=== PATIENT | female | born 1935 | race African-American/Black ===

== ENCOUNTER 2018-07-15 16:18 | Emergency (ER) | payer OTHER ==
[~2018-07-15] VITALS: Ht 165.1 cm; Wt 102.0 kg
[~2018-07-15 16:18] MED LIST: BENA40TA9 PO; CLON0.2T PO; FURO40TA5 PO; IBUP-2030 PO; INSU3INS6 SUBCUT; METF500T6 PO; METO100T16 PO; NIFE60TA94 PO; SIMV40TA5 PO; TRAM50TA PO
[2018-07-15] MEDS ORDERED: IBUPROFEN 600MG TABLET PO STA (17:03)
[2018-07-15 18:04] LABS: BASOPHILS % 0.4 % (0.0-2.0); EOSINOPHILS % 9.1 % (0.0-5.0); HEMATOCRIT. 33.5 % (36.0-48.0); HEMOGLOBIN. 10.5 g/dL (12.0-16.0); LYMPHOCYTES % 17.5 % (20.0-50.0); MEAN CORPUSCULAR HEMOGLOBIN 25.8 pg (28.0-32.0); MEAN CORPUSCULAR VOLUME 81.8 fL (81.0-99.0); MEAN PLATELET VOLUME 7.5 fl (7.4-10.4); MONOCYTES % 10.9 % (2.0-8.0); NEUTROPHILS % 62.1 % (40.0-76.0); PLATELET 410 x1000/uL (130-400); RED BLOOD CELL COUNT 4.09 mill/uL (4.2-5.4); RED CELL DISTRIBUTION WIDTH 20.3 % (11.6-14.6)
[2018-07-15 18:05] LABS: CLARITY URINE TURBID (CLEAR); COLOR URINE DARK YELLOW (YELLOW); KETONES URINE TRACE (NEGATIVE); LEUKOCYTE ESTERASE URINE 3+ (NEGATIVE); NITRITE URINE POSITIVE (NEGATIVE); OCCULT BLOOD URINE 1+ (NEGATIVE); PH URINE 5.5 (4.5-8.0); PROTEIN URINE 2+ (NEGATIVE); SPECIFIC GRAVITY URINE 1.031 (1.005-1.030)
[2018-07-15 18:08] LABS: CHLORIDE 103 mEq/L (98-107)
[2018-07-15 20:19] VITALS: BP 166/76
== END 2018-07-15 20:36 | disposition home or self-care (01) ==
LOC: ER 16:18
DX: R10.9 Unspecified abdominal pain (principal); N30.00 Acute cystitis without hematuria; E11.9 Type 2 diabetes mellitus without complications; E78.00 Pure hypercholesterolemia, unspecified; I11.0 Hypertensive heart disease with heart failure; I50.9 Heart failure, unspecified; Z88.0 Allergy status to penicillin; Z88.2 Allergy status to sulfonamides; Z88.6 Allergy status to analgesic agent; Z79.4 Long term (current) use of insulin; Z91.011 Allergy to milk products; Z95.0 Presence of cardiac pacemaker; Z79.899 Other long term (current) drug therapy
CPT/HCPCS: 36415; 74176; 80053; 81003; 85025; 87077; 87086; 87186; 99285

== ENCOUNTER 2020-12-05 10:48 | Inpatient (IN) | payer MEDICARE ==
[~2020-12-05] VITALS: Ht 165.1 cm; Wt 121.1 kg
[~2020-12-05 10:48] MED LIST changes: +ALBUTEROL; -BENA40TA9 PO; -CLON0.2T PO; +DOCU-138 MT; +FAMO-135 PO; +FURO-151 MT; +HYDR-4135 PO; -IBUP-2030 PO; +IPRA3AMP9 NEB; +METF-414 PO; -METF500T6 PO; +METO100T16 MT; +NIFE-72 PO; +NIFE60TA78 MT; -NIFE60TA94 PO; +P20 PO; +PULM50 NEB; +SIMV-46 PO; -SIMV40TA5 PO
[2020-12-05 12:11] LABS: CHLORIDE 103 mEq/L (98-107)
[2020-12-05 12:13] LABS: BASOPHILS % 1.2 % (0.0-2.0); EOSINOPHILS % 0.8 % (0.0-5.0); HEMATOCRIT. 35.6 % (36.0-48.0); HEMOGLOBIN. 11.2 g/dL (12.0-16.0); MEAN CORPUSCULAR HEMOGLOBIN 27.4 pg (28.0-32.0); MEAN CORPUSCULAR VOLUME 87.5 fL (81.0-99.0); MEAN PLATELET VOLUME 8.2 fl (7.4-10.4); MONOCYTES % 13.2 % (2.0-8.0); NEUTROPHILS % 72.8 % (40.0-76.0); PLATELET 269 x1000/uL (130-400); RED BLOOD CELL COUNT 4.07 mill/uL (4.2-5.4); RED CELL DISTRIBUTION WIDTH 18.1 % (11.6-14.6)
[2020-12-05 12:14] LABS: INR 1.1; PROTHROMBIN TIME 11.6 sec (9.6-11.0)
[2020-12-05] MEDS ORDERED: FUROSEMIDE 40MG/4ML VIAL IVP ONE (12:30)
[2020-12-05] MEDS ORDERED: IPRATROPIUM/ALBUTEROL 0.5-3(2.5)MG/3ML NEB NEB PRN (13:45)
[2020-12-05] MEDS ORDERED: GUAIFENESIN 200MG/10ML SUGAR FREE UDC PO PRN (13:45)
[2020-12-05] MEDS ORDERED: LORAZEPAM 0.5MG TABLET PO PRN (13:45)
[2020-12-05] MEDS ORDERED: DEXTROSE 50% WATER 50ML SYRINGE IV PRN (13:45)
[2020-12-05] MEDS ORDERED: CLONIDINE 0.1MG TABLET PO PRN (13:45)
[2020-12-05] MEDS ORDERED: NA PHOS,M-B/NA PHOS,DI-BA ENEMA 118ML PR PRN (13:45)
[2020-12-05] MEDS ORDERED: DIPHENHYDRAMINE 50MG/ML VIAL IV PRN (13:45)
[2020-12-05] MEDS ORDERED: SODIUM POLYSTYRENE SULFONATE 15 G/60 ML BOT PO NR ×3 (13:45→16:15)
[2020-12-05 14:48] LABS: CREATINE KINASE MB FRACTION 5.6 ng/mL (0.5-3.6)
[2020-12-05] MEDS ORDERED: ENOXAPARIN 30MG/0.3ML SYR SUBCUT SCH (16:00)
[2020-12-05] MEDS: BLOOD SUGAR DIAGNOSTIC STRIP TEST SCH ×2 (17:00→21:40)
[2020-12-05] MEDS: INSULIN LISPRO 100 UNITS/ML SUBCUT SCH ×2 (19:05→21:00)
[2020-12-05 21:46] LABS: CLARITY URINE CLOUDY (CLEAR); COLOR URINE DARK YELLOW (YELLOW); KETONES URINE TRACE (NEGATIVE); LEUKOCYTE ESTERASE URINE 1+ (NEGATIVE); NITRITE URINE NEGATIVE (NEGATIVE); OCCULT BLOOD URINE NEGATIVE (NEGATIVE); PROTEIN URINE 1+ (NEGATIVE); SPECIFIC GRAVITY URINE 1.025 (1.005-1.030)
[2020-12-05] MEDS: FAMOTIDINE 20MG TABLET PO SCH (21:50)
[2020-12-05] MEDS: FUROSEMIDE 40MG/4ML VIAL IV NR ×2 (23:56→23:57)
[2020-12-06] VITALS (7 sets, daily range): BP systolic 98–138; BP diastolic 50–68
[2020-12-06 00:15] LABS: CREATINE KINASE MB FRACTION 7.5 ng/mL (0.5-3.6)
[2020-12-06 05:18] LABS: HEMATOCRIT. 35.9 % (36.0-48.0); HEMOGLOBIN. 11.1 g/dL (12.0-16.0); MEAN CORPUSCULAR HEMOGLOBIN 27.7 pg (28.0-32.0); MEAN CORPUSCULAR VOLUME 89.7 fL (81.0-99.0); MEAN PLATELET VOLUME 8.6 fl (7.4-10.4); PLATELET 268 x1000/uL (130-400); RED CELL DISTRIBUTION WIDTH 18.9 % (11.6-14.6)
[2020-12-06 05:29] LABS: CHLORIDE 106 mEq/L (98-107)
[2020-12-06 05:38] LABS: LDL CHOLESTEROL 64 mg/dL (5-100)
[2020-12-06 05:39] LABS: HDL CHOLESTEROL 39 mg/dL (40-59); T4 FREE 1.17 ng/dL (0.76-1.46)
[2020-12-06] MEDS: INSULIN LISPRO 100 UNITS/ML SUBCUT SCH ×4 (07:00→21:00)
[2020-12-06] MEDS: BLOOD SUGAR DIAGNOSTIC STRIP TEST SCH ×4 (07:06→21:00)
[2020-12-06 10:57] LABS: PLATELET ESTIMATE NORMAL
[2020-12-06 12:18] LABS: BG BASE EXCESS -1.8 mmol/L (-2.0-2.0); BG CARBOXYHEMOGLOBIN 0.2 % (0.5-1.5); BG DEOXYHEMOGLOBIN 1.4 % (0.0-5.0); BG FRACTION INSPIRED OXYGEN 28; BG HCO3 ACT 28.5 mmol/L (22.0-26.0); BG METHEMOGLOBIN 0.2 % (0.0-1.5); BG OXYGEN SATURATION 98.6 % (92.0-98.5); BG OXYHEMOGLOBIN 98.2 % (94.0-97.0); BG PCO2 83.6 mmHg (35.0-45.0); BG PH 7.151 (7.350-7.450); BG PO2 150.3 mmHg (75.0-100.0); BG SAMPLE SITE RIGHT BRACHIAL; BG TOTAL HEMOGLOBIN 10.9 g/dL (12.0-18.0); BG VENT MODE NASAL CANNULA
[2020-12-06] MEDS ORDERED: SODIUM POLYSTYRENE SULFONATE 15 G/60 ML BOT PO NR (14:00)
[2020-12-06] MEDS: IPRATROPIUM/ALBUTEROL 0.5-3(2.5)MG/3ML NEB NEB SCH ×2 (14:19→21:54)
[2020-12-06] MEDS: BUDESONIDE 0.5MG/2ML NEB HHN SCH ×2 (14:19→21:54)
[2020-12-06 14:21] LABS: BG BASE EXCESS -3.8 mmol/L (-2.0-2.0); BG CARBOXYHEMOGLOBIN 0.7 % (0.5-1.5); BG HCO3 ACT 26.5 mmol/L (22.0-26.0); BG METHEMOGLOBIN 0.3 % (0.0-1.5); BG PCO2 78.3 mmHg (35.0-45.0); BG PH 7.148 (7.350-7.450); BG PO2 121.8 mmHg (75.0-100.0); BG SAMPLE SITE LEFT RADIAL; BG VENT MODE MASK - BIPAP
[2020-12-06] MEDS ORDERED: INFLUENZA VACCINE 05/PF 0.5 ML VIAL IM ONE (16:00)
[2020-12-06] MEDS ORDERED: PNEUMOCOCCAL 23-VAL P-SAC VAC 0.5 ML IM ONE (16:00)
[2020-12-06] MEDS ORDERED: ENOXAPARIN 40MG/0.4ML SYR SUBCUT SCH (16:00)
[2020-12-06] MEDS ORDERED: LEVOFLOXACIN 750MG PREMIX 150 ML IV NR (19:00)
[2020-12-06] MEDS: FAMOTIDINE 20MG TABLET PO SCH (22:20)
[2020-12-06 23:33] LABS: BG BASE EXCESS -1.1 mmol/L (-2.0-2.0); BG CARBOXYHEMOGLOBIN 0.6 % (0.5-1.5); BG DEOXYHEMOGLOBIN 1.2 % (0.0-5.0); BG FRACTION INSPIRED OXYGEN 50; BG HCO3 ACT 27.6 mmol/L (22.0-26.0); BG METHEMOGLOBIN 0.3 % (0.0-1.5); BG OXYGEN SATURATION 98.8 % (92.0-98.5); BG OXYHEMOGLOBIN 97.9 % (94.0-97.0); BG PCO2 68.3 mmHg (35.0-45.0); BG PH 7.225 (7.350-7.450); BG PO2 149.1 mmHg (75.0-100.0); BG SAMPLE SITE LEFT BRACHIAL; BG TOTAL HEMOGLOBIN 11.4 g/dL (12.0-18.0); BG VENT MODE MASK - BIPAP
[2020-12-07] VITALS (12 sets, daily range): BP systolic 91–132; BP diastolic 41–71
[2020-12-07] MEDS: IPRATROPIUM/ALBUTEROL 0.5-3(2.5)MG/3ML NEB NEB SCH ×4 (03:04→22:27)
[2020-12-07 07:08] LABS: CHLORIDE 108 mEq/L (98-107)
[2020-12-07] MEDS: BLOOD SUGAR DIAGNOSTIC STRIP TEST SCH ×4 (07:46→21:00)
[2020-12-07] MEDS: INSULIN LISPRO 100 UNITS/ML SUBCUT SCH ×4 (07:46→21:00)
[2020-12-07 07:49] LABS: HEPATITIS B SURFACE ANTIGEN NEGATIVE
[2020-12-07 08:18] LABS: HEPATITIS A AB IGM NEGATIVE (NEGATIVE)
[2020-12-07 09:15] LABS: HEMATOCRIT. 32.3 % (36.0-48.0); MEAN CORPUSCULAR HEMOGLOBIN 27.8 pg (28.0-32.0); MEAN CORPUSCULAR VOLUME 89.2 fL (81.0-99.0); MEAN PLATELET VOLUME 8.2 fl (7.4-10.4); PLATELET 231 x1000/uL (130-400); RED BLOOD CELL COUNT 3.62 mill/uL (4.2-5.4); RED CELL DISTRIBUTION WIDTH 18.3 % (11.6-14.6)
[2020-12-07 12:17] LABS: BG CARBOXYHEMOGLOBIN 0.3 % (0.5-1.5); BG DEOXYHEMOGLOBIN 1.2 % (0.0-5.0); BG FRACTION INSPIRED OXYGEN 50; BG HCO3 ACT 29.6 mmol/L (22.0-26.0); BG METHEMOGLOBIN 0.1 % (0.0-1.5); BG OXYGEN SATURATION 98.8 % (92.0-98.5); BG OXYHEMOGLOBIN 98.4 % (94.0-97.0); BG PCO2 63.2 mmHg (35.0-45.0); BG PH 7.289 (7.350-7.450); BG PO2 156.5 mmHg (75.0-100.0); BG SAMPLE SITE RIGHT BRACHIAL; BG TOTAL HEMOGLOBIN 10.3 g/dL (12.0-18.0); BG TOTAL RESPIRATORY RATE 20 b/min; BG VENT MODE MASK - BIPAP
[2020-12-07 12:42] LABS: PLATELET ESTIMATE NORMAL
[2020-12-07] MEDS: BUDESONIDE 0.5MG/2ML NEB HHN SCH ×2 (14:11→22:28)
[2020-12-07] MEDS: FAMOTIDINE 20MG TABLET PO SCH (22:36)
[2020-12-08] VITALS (12 sets, daily range): BP systolic 77–115; BP diastolic 46–59
[2020-12-08 05:08] LABS: HIV SCREEN 4G Non Reactive (Non Reactive)
[2020-12-08] MEDS: INSULIN LISPRO 100 UNITS/ML SUBCUT SCH ×4 (08:00→21:00)
[2020-12-08] MEDS: IPRATROPIUM/ALBUTEROL 0.5-3(2.5)MG/3ML NEB NEB SCH ×4 (08:26→21:32)
[2020-12-08] MEDS: BLOOD SUGAR DIAGNOSTIC STRIP TEST SCH ×4 (08:29→21:00)
[2020-12-08] MEDS: ENOXAPARIN 120MG/0.8ML SYR SUBCUT SCH (08:32)
[2020-12-08 09:17] LABS: BG BASE EXCESS 5.9 mmol/L (-2.0-2.0); BG CARBOXYHEMOGLOBIN 0.1 % (0.5-1.5); BG DEOXYHEMOGLOBIN 1.4 % (0.0-5.0); BG FRACTION INSPIRED OXYGEN 40; BG HCO3 ACT 31.1 mmol/L (22.0-26.0); BG METHEMOGLOBIN 0.3 % (0.0-1.5); BG OXYGEN SATURATION 98.6 % (92.0-98.5); BG OXYHEMOGLOBIN 98.2 % (94.0-97.0); BG PCO2 48.2 mmHg (35.0-45.0); BG PH 7.427 (7.350-7.450); BG PO2 135.1 mmHg (75.0-100.0); BG SAMPLE SITE RIGHT BRACHIAL; BG TOTAL HEMOGLOBIN 9.3 g/dL (12.0-18.0); BG VENT MODE MASK - BIPAP
[2020-12-08 09:49] LABS: HEMATOCRIT. 28.1 % (36.0-48.0); MEAN CORPUSCULAR HEMOGLOBIN 27.9 pg (28.0-32.0); MEAN CORPUSCULAR VOLUME 87.5 fL (81.0-99.0); MEAN PLATELET VOLUME 8.1 fl (7.4-10.4); PLATELET 181 x1000/uL (130-400); RED BLOOD CELL COUNT 3.21 mill/uL (4.2-5.4); RED CELL DISTRIBUTION WIDTH 18.6 % (11.6-14.6)
[2020-12-08 09:57] LABS: CHLORIDE 109 mEq/L (98-107)
[2020-12-08] MEDS: ONDANSETRON HCL 4MG/2ML INJ IV PRN ×2 (10:13→17:05)
[2020-12-08] MEDS: BUDESONIDE 0.5MG/2ML NEB HHN SCH (10:52)
[2020-12-08] MEDS: LEVOFLOXACIN 500MG PREMIX 100 ML IV SCH (11:52)
[2020-12-08] MEDS ORDERED: MIDODRINE HCL 5MG TABLET PO NR (19:30)
[2020-12-08 20:24] LABS: PLATELET ESTIMATE NORMAL
[2020-12-08] MEDS: FAMOTIDINE 20MG TABLET PO SCH (21:11)
[2020-12-09] VITALS (9 sets, daily range): BP systolic 82–135; BP diastolic 41–76
[2020-12-09] MEDS: MIDODRINE HCL 5MG TABLET PO SCH ×3 (05:36→21:43)
[2020-12-09] MEDS: MAGNESIUM/ALUMINUM HYDROXIDE/SIMETHICONE 30ML UDC PO PRN ×2 (05:42→21:58)
[2020-12-09 06:55] LABS: HEMATOCRIT. 27.6 % (36.0-48.0); HEMOGLOBIN. 8.7 g/dL (12.0-16.0); MEAN CORPUSCULAR HEMOGLOBIN 27.5 pg (28.0-32.0); MEAN CORPUSCULAR VOLUME 87.6 fL (81.0-99.0); MEAN PLATELET VOLUME 8.4 fl (7.4-10.4); PLATELET 182 x1000/uL (130-400); RED BLOOD CELL COUNT 3.15 mill/uL (4.2-5.4); RED CELL DISTRIBUTION WIDTH 18.5 % (11.6-14.6)
[2020-12-09 07:36] LABS: PHOSPHORUS 3.3 mg/dL (2.5-4.9)
[2020-12-09] MEDS: INSULIN LISPRO 100 UNITS/ML SUBCUT SCH ×4 (08:00→21:00)
[2020-12-09] MEDS: ENOXAPARIN 120MG/0.8ML SYR SUBCUT SCH (08:11)
[2020-12-09] MEDS: BLOOD SUGAR DIAGNOSTIC STRIP TEST SCH ×4 (08:12→21:00)
[2020-12-09] MEDS: BUDESONIDE 0.5MG/2ML NEB HHN SCH ×2 (08:27→22:20)
[2020-12-09] MEDS ORDERED: LIDOCAINE HCL/PF 1% 2ML VIAL ONE (09:00)
[2020-12-09] MEDS: DILTIAZEM HCL 120MG CAPSULE CD 24HR PO SCH (13:00)
[2020-12-09 16:45] LABS: BG BASE EXCESS 3.9 mmol/L (-2.0-2.0); BG CARBOXYHEMOGLOBIN 0.6 % (0.5-1.5); BG FRACTION INSPIRED OXYGEN 28; BG HCO3 ACT 28.7 mmol/L (22.0-26.0); BG METHEMOGLOBIN 0.1 % (0.0-1.5); BG OXYHEMOGLOBIN 97.3 % (94.0-97.0); BG PCO2 44.3 mmHg (35.0-45.0); BG PO2 108.2 mmHg (75.0-100.0); BG SAMPLE SITE LEFT RADIAL; BG TOTAL HEMOGLOBIN 11.6 g/dL (12.0-18.0); BG VENT MODE NASAL CANNULA
[2020-12-09 17:02] LABS: HEMATOCRIT. 32.7 % (36.0-48.0); HEMOGLOBIN. 10.2 g/dL (12.0-16.0); MEAN CORPUSCULAR HEMOGLOBIN 27.3 pg (28.0-32.0); MEAN CORPUSCULAR VOLUME 87.3 fL (81.0-99.0); MEAN PLATELET VOLUME 8.7 fl (7.4-10.4); PLATELET 197 x1000/uL (130-400); RED BLOOD CELL COUNT 3.75 mill/uL (4.2-5.4); RED CELL DISTRIBUTION WIDTH 18.4 % (11.6-14.6)
[2020-12-09 19:53] LABS: PLATELET ESTIMATE NORMAL
[2020-12-09] MEDS: FAMOTIDINE 20MG TABLET PO SCH (21:43)
[2020-12-09 22:12] LABS: PLATELET ESTIMATE NORMAL
[2020-12-09] MEDS: IPRATROPIUM/ALBUTEROL 0.5-3(2.5)MG/3ML NEB NEB SCH (22:20)
[2020-12-10] VITALS (10 sets, daily range): BP systolic 97–134; BP diastolic 46–69
[2020-12-10] MEDS: MIDODRINE HCL 5MG TABLET PO SCH ×3 (05:53→22:04)
[2020-12-10 07:12] LABS: HEMATOCRIT. 27.5 % (36.0-48.0); MEAN CORPUSCULAR HEMOGLOBIN 28.5 pg (28.0-32.0); MEAN CORPUSCULAR VOLUME 86.7 fL (81.0-99.0); MEAN PLATELET VOLUME 8.8 fl (7.4-10.4); PLATELET 195 x1000/uL (130-400); RED BLOOD CELL COUNT 3.17 mill/uL (4.2-5.4); RED CELL DISTRIBUTION WIDTH 18.1 % (11.6-14.6)
[2020-12-10] MEDS: IPRATROPIUM/ALBUTEROL 0.5-3(2.5)MG/3ML NEB NEB SCH ×3 (07:45→22:00)
[2020-12-10] MEDS: BLOOD SUGAR DIAGNOSTIC STRIP TEST SCH ×4 (07:55→21:00)
[2020-12-10] MEDS: INSULIN LISPRO 100 UNITS/ML SUBCUT SCH ×4 (07:55→21:00)
[2020-12-10] MEDS: BUDESONIDE 0.5MG/2ML NEB HHN SCH ×2 (08:04→22:00)
[2020-12-10] MEDS: DILTIAZEM HCL 120MG CAPSULE CD 24HR PO SCH (09:00)
[2020-12-10] MEDS: ENOXAPARIN 120MG/0.8ML SYR SUBCUT SCH (10:00)
[2020-12-10] MEDS: LEVOFLOXACIN 500MG PREMIX 100 ML IV SCH (14:52)
[2020-12-10 18:21] LABS: PLATELET ESTIMATE NORMAL
[2020-12-10] MEDS: FAMOTIDINE 20MG TABLET PO SCH (21:05)
[2020-12-11] VITALS: BP 103/55
[2020-12-11] MEDS: IPRATROPIUM/ALBUTEROL 0.5-3(2.5)MG/3ML NEB NEB SCH ×4 (02:00→20:41)
[2020-12-11 04:00] VITALS: BP 103/60
[2020-12-11] MEDS: MIDODRINE HCL 5MG TABLET PO SCH ×3 (05:47→21:06)
[2020-12-11 07:21] LABS: PHOSPHORUS 2.6 mg/dL (2.5-4.9)
[2020-12-11 07:28] LABS: HEMATOCRIT. 29.5 % (36.0-48.0); HEMOGLOBIN. 9.2 g/dL (12.0-16.0); MEAN CORPUSCULAR HEMOGLOBIN 27.2 pg (28.0-32.0); MEAN CORPUSCULAR VOLUME 87.6 fL (81.0-99.0); MEAN PLATELET VOLUME 8.8 fl (7.4-10.4); PLATELET 236 x1000/uL (130-400); RED BLOOD CELL COUNT 3.37 mill/uL (4.2-5.4); RED CELL DISTRIBUTION WIDTH 18.3 % (11.6-14.6)
[2020-12-11] MEDS: BLOOD SUGAR DIAGNOSTIC STRIP TEST SCH ×4 (07:50→20:58)
[2020-12-11 08:00] VITALS: BP 84/57
[2020-12-11] MEDS: INSULIN LISPRO 100 UNITS/ML SUBCUT SCH ×4 (08:00→21:00)
[2020-12-11] MEDS: DILTIAZEM HCL 120MG CAPSULE CD 24HR PO SCH (08:58)
[2020-12-11] MEDS: BUDESONIDE 0.5MG/2ML NEB HHN SCH ×2 (10:05→20:41)
[2020-12-11 12:00] VITALS: BP 86/46
[2020-12-11 13:55] LABS: PLATELET ESTIMATE NORMAL
[2020-12-11 16:53] VITALS: BP 99/62
[2020-12-11 20:00] VITALS: BP 89/50
[2020-12-11] MEDS: DOCUSATE SODIUM 100MG CAPSULE PO PRN (21:05)
[2020-12-11] MEDS: FAMOTIDINE 20MG TABLET PO SCH (21:06)
[2020-12-12] VITALS (10 sets, daily range): BP systolic 81–120; BP diastolic 40–66
[2020-12-12] MEDS: IPRATROPIUM/ALBUTEROL 0.5-3(2.5)MG/3ML NEB NEB SCH ×4 (00:46→21:59)
[2020-12-12 06:32] LABS: PHOSPHORUS 3.5 mg/dL (2.5-4.9)
[2020-12-12 07:07] LABS: HEMATOCRIT. 29.8 % (36.0-48.0); HEMOGLOBIN. 9.4 g/dL (12.0-16.0); MEAN CORPUSCULAR HEMOGLOBIN 27.7 pg (28.0-32.0); MEAN CORPUSCULAR VOLUME 88.2 fL (81.0-99.0); MEAN PLATELET VOLUME 8.2 fl (7.4-10.4); PLATELET 256 x1000/uL (130-400); RED BLOOD CELL COUNT 3.38 mill/uL (4.2-5.4); RED CELL DISTRIBUTION WIDTH 18.3 % (11.6-14.6)
[2020-12-12] MEDS: BLOOD SUGAR DIAGNOSTIC STRIP TEST SCH ×4 (07:30→20:47)
[2020-12-12] MEDS: INSULIN LISPRO 100 UNITS/ML SUBCUT SCH ×4 (08:00→20:47)
[2020-12-12] MEDS: BUDESONIDE 0.5MG/2ML NEB HHN SCH ×2 (08:07→22:00)
[2020-12-12] MEDS: DILTIAZEM HCL 120MG CAPSULE CD 24HR PO SCH (08:47)
[2020-12-12] MEDS: MIDODRINE HCL 5MG TABLET PO SCH ×3 (11:31→21:39)
[2020-12-12] MEDS: LEVOFLOXACIN 500MG PREMIX 100 ML IV SCH (12:03)
[2020-12-12] MEDS: MAGNESIUM/ALUMINUM HYDROXIDE/SIMETHICONE 30ML UDC PO PRN (13:53)
[2020-12-12 13:57] LABS: NUCLEATED RED BLOOD CELLS 3 /100 WBC; PLATELET ESTIMATE NORMAL
[2020-12-12] MEDS: DOCUSATE SODIUM 100MG CAPSULE PO PRN (21:38)
[2020-12-12] MEDS: FAMOTIDINE 20MG TABLET PO SCH (21:39)
[2020-12-12] MEDS: EPOETIN ALFA-EPBX 4,000 UNIT/ML VIAL SUBCUT SCH (21:39)
[2020-12-13] VITALS (7 sets, daily range): BP systolic 104–119; BP diastolic 49–63
[2020-12-13] MEDS: IPRATROPIUM/ALBUTEROL 0.5-3(2.5)MG/3ML NEB NEB SCH ×4 (03:34→20:44)
[2020-12-13] MEDS: MIDODRINE HCL 5MG TABLET PO SCH ×3 (05:24→22:20)
[2020-12-13] MEDS: BLOOD SUGAR DIAGNOSTIC STRIP TEST SCH ×4 (07:30→20:29)
[2020-12-13] MEDS: INSULIN LISPRO 100 UNITS/ML SUBCUT SCH ×4 (08:00→20:29)
[2020-12-13] MEDS: BUDESONIDE 0.5MG/2ML NEB HHN SCH ×2 (08:26→20:47)
[2020-12-13] MEDS: DILTIAZEM HCL 120MG CAPSULE CD 24HR PO SCH (09:00)
[2020-12-13 11:00] LABS: HEMATOCRIT. 31.7 % (36.0-48.0); HEMOGLOBIN. 9.8 g/dL (12.0-16.0); MEAN CORPUSCULAR HEMOGLOBIN 27.6 pg (28.0-32.0); MEAN CORPUSCULAR VOLUME 88.9 fL (81.0-99.0); MEAN PLATELET VOLUME 7.8 fl (7.4-10.4); PLATELET 255 x1000/uL (130-400); RED BLOOD CELL COUNT 3.56 mill/uL (4.2-5.4); RED CELL DISTRIBUTION WIDTH 18.2 % (11.6-14.6)
[2020-12-13 14:36] LABS: NUCLEATED RED BLOOD CELLS 1 /100 WBC
[2020-12-13 14:37] LABS: PLATELET ESTIMATE NORMAL
[2020-12-13] MEDS: FAMOTIDINE 20MG TABLET PO SCH (20:29)
[2020-12-14] VITALS (22 sets, daily range): BP systolic 90–151; BP diastolic 48–86
[2020-12-14] MEDS: IPRATROPIUM/ALBUTEROL 0.5-3(2.5)MG/3ML NEB NEB SCH ×4 (00:39→21:05)
[2020-12-14] MEDS: MIDODRINE HCL 5MG TABLET PO SCH ×3 (06:06→20:42)
[2020-12-14 06:49] LABS: BASOPHILS % 1.2 % (0.0-2.0); EOSINOPHILS % 3.2 % (0.0-5.0); HEMATOCRIT. 31.6 % (36.0-48.0); HEMOGLOBIN. 9.8 g/dL (12.0-16.0); LYMPHOCYTES % 6.6 % (20.0-50.0); MEAN CORPUSCULAR HEMOGLOBIN 27.7 pg (28.0-32.0); MEAN CORPUSCULAR VOLUME 89.6 fL (81.0-99.0); MEAN PLATELET VOLUME 7.8 fl (7.4-10.4); MONOCYTES % 18.2 % (2.0-8.0); NEUTROPHILS % 70.8 % (40.0-76.0); PLATELET 232 x1000/uL (130-400); RED BLOOD CELL COUNT 3.53 mill/uL (4.2-5.4); RED CELL DISTRIBUTION WIDTH 18.6 % (11.6-14.6)
[2020-12-14 07:14] LABS: PHOSPHORUS 2.9 mg/dL (2.5-4.9)
[2020-12-14] MEDS: BLOOD SUGAR DIAGNOSTIC STRIP TEST SCH ×4 (07:30→20:41)
[2020-12-14] MEDS: INSULIN LISPRO 100 UNITS/ML SUBCUT SCH ×4 (08:00→20:41)
[2020-12-14] MEDS: DILTIAZEM HCL 120MG CAPSULE CD 24HR PO SCH (09:18)
[2020-12-14] MEDS ORDERED: BISACODYL 10MG SUPP PR SCH (11:15)
[2020-12-14] MEDS ORDERED: BISACODYL 10MG SUPP PR PRN ×2 (11:15)
[2020-12-14] MEDS ORDERED: CLINDAMYCIN 600MG PREMIX 50 ML IV SCH (13:15)
[2020-12-14] MEDS ORDERED: LIDOCAINE HCL 1% 20ML VIAL (Pyxis) INJ ONE (13:34)
[2020-12-14] MEDS ORDERED: SODIUM BICARBONATE 4% (2.4MEQ) 5ML VIAL IV ONE (13:34)
[2020-12-14] MEDS ORDERED: FENTANYL CITRATE/PF 50MCG/ML 2ML VIAL ONE (13:46)
[2020-12-14] MEDS ORDERED: FENTANYL CITRATE/PF 50MCG/ML 2ML VIAL IV ONE (14:15)
[2020-12-14] MEDS: BUDESONIDE 0.5MG/2ML NEB HHN SCH (16:19)
[2020-12-14] MEDS ORDERED: HYDROCODONE/ACETAMINOPHEN 5/325MG TABLET PO PRN (19:15)
[2020-12-14] MEDS: FAMOTIDINE 20MG TABLET PO SCH (20:41)
[2020-12-14] MEDS: EPOETIN ALFA-EPBX 4,000 UNIT/ML VIAL SUBCUT SCH (20:41)
[2020-12-14] MEDS: TRAMADOL 50MG TABLET PO PRN (20:43)
[2020-12-15] VITALS: BP 110/52
[2020-12-15 03:01] VITALS: BP 138/52
[2020-12-15] MEDS: IPRATROPIUM/ALBUTEROL 0.5-3(2.5)MG/3ML NEB NEB SCH ×4 (03:05→21:30)
[2020-12-15] MEDS: BUDESONIDE 0.5MG/2ML NEB HHN SCH ×3 (03:05→21:30)
[2020-12-15] MEDS: MIDODRINE HCL 5MG TABLET PO SCH ×3 (05:08→21:02)
[2020-12-15 06:42] LABS: HEMATOCRIT. 29.2 % (36.0-48.0); HEMOGLOBIN. 9.1 g/dL (12.0-16.0); MEAN CORPUSCULAR HEMOGLOBIN 28.2 pg (28.0-32.0); MEAN CORPUSCULAR VOLUME 90.5 fL (81.0-99.0); PLATELET 227 x1000/uL (130-400); RED BLOOD CELL COUNT 3.22 mill/uL (4.2-5.4); RED CELL DISTRIBUTION WIDTH 19.1 % (11.6-14.6)
[2020-12-15] MEDS: BLOOD SUGAR DIAGNOSTIC STRIP TEST SCH ×4 (07:30→20:29)
[2020-12-15 08:00] VITALS: BP 134/71
[2020-12-15] MEDS: INSULIN LISPRO 100 UNITS/ML SUBCUT SCH ×4 (08:00→20:29)
[2020-12-15] MEDS: DILTIAZEM HCL 120MG CAPSULE CD 24HR PO SCH (09:00)
[2020-12-15 12:00] VITALS: BP 108/70
[2020-12-15] MEDS: TRAMADOL 50MG TABLET PO PRN ×2 (12:59→20:28)
[2020-12-15 14:29] LABS: PLATELET ESTIMATE NORMAL
[2020-12-15 16:00] VITALS: BP 113/64
[2020-12-15] MEDS: FAMOTIDINE 20MG TABLET PO SCH (20:28)
[2020-12-16] VITALS (7 sets, daily range): BP systolic 104–139; BP diastolic 54–75
[2020-12-16] MEDS: IPRATROPIUM/ALBUTEROL 0.5-3(2.5)MG/3ML NEB NEB SCH ×4 (03:04→20:26)
[2020-12-16] MEDS: MIDODRINE HCL 5MG TABLET PO SCH ×3 (05:08→22:13)
[2020-12-16 06:33] LABS: HEMOGLOBIN. 10.2 g/dL (12.0-16.0); MEAN CORPUSCULAR VOLUME 90.8 fL (81.0-99.0); MEAN PLATELET VOLUME 7.6 fl (7.4-10.4); PLATELET 224 x1000/uL (130-400); RED BLOOD CELL COUNT 3.64 mill/uL (4.2-5.4)
[2020-12-16 06:46] LABS: PHOSPHORUS 3.6 mg/dL (2.5-4.9)
[2020-12-16] MEDS: BUDESONIDE 0.5MG/2ML NEB HHN SCH (08:13)
[2020-12-16] MEDS: APIXABAN 2.5 MG TABLET PO SCH ×2 (09:23→17:23)
[2020-12-16] MEDS: ONDANSETRON HCL 4MG/2ML INJ IV PRN ×2 (09:23→17:38)
[2020-12-16] MEDS: DILTIAZEM HCL 120MG CAPSULE CD 24HR PO SCH (09:23)
[2020-12-16] MEDS: METOCLOPRAMIDE HCL 5MG TABLET PO SCH ×3 (09:58→22:13)
[2020-12-16 12:29] LABS: PLATELET ESTIMATE NORMAL
[2020-12-16] MEDS: FAMOTIDINE 20MG TABLET PO SCH (22:13)
[2020-12-17] VITALS: BP 106/65
[2020-12-17] MEDS: IPRATROPIUM/ALBUTEROL 0.5-3(2.5)MG/3ML NEB NEB SCH ×4 (02:26→20:11)
[2020-12-17] MEDS: BUDESONIDE 0.5MG/2ML NEB HHN SCH ×3 (02:40→20:10)
[2020-12-17 04:00] VITALS: BP 130/69
[2020-12-17] MEDS: SORBITOL 70% SOLN 30ML PO PRN ×2 (05:40→08:53)
[2020-12-17] MEDS: MIDODRINE HCL 5MG TABLET PO SCH ×3 (05:41→22:31)
[2020-12-17 06:10] LABS: HEMATOCRIT. 32.2 % (36.0-48.0); HEMOGLOBIN. 10.1 g/dL (12.0-16.0); MEAN CORPUSCULAR HEMOGLOBIN 28.7 pg (28.0-32.0); MEAN CORPUSCULAR VOLUME 91.4 fL (81.0-99.0); MEAN PLATELET VOLUME 7.7 fl (7.4-10.4); PLATELET 246 x1000/uL (130-400); RED BLOOD CELL COUNT 3.52 mill/uL (4.2-5.4); RED CELL DISTRIBUTION WIDTH 19.7 % (11.6-14.6)
[2020-12-17 06:20] LABS: PHOSPHORUS 4.9 mg/dL (2.5-4.9)
[2020-12-17 08:00] VITALS: BP 134/66
[2020-12-17] MEDS: APIXABAN 2.5 MG TABLET PO SCH ×2 (08:53→17:18)
[2020-12-17] MEDS: METOCLOPRAMIDE HCL 5MG TABLET PO SCH ×4 (08:53→20:40)
[2020-12-17] MEDS: DILTIAZEM HCL 120MG CAPSULE CD 24HR PO SCH (08:53)
[2020-12-17] MEDS ORDERED: SODIUM POLYSTYRENE SULFONATE 15 G/60 ML BOT PO NR (10:00)
[2020-12-17 12:00] VITALS: BP 126/61
[2020-12-17] MEDS ORDERED: SORBITOL 70% SOLN 30ML PO NR (13:45)
[2020-12-17 16:01] VITALS: BP 147/74
[2020-12-17 20:00] VITALS: BP 117/20
[2020-12-17] MEDS: TRAMADOL 50MG TABLET PO PRN (20:40)
[2020-12-17] MEDS: FAMOTIDINE 20MG TABLET PO SCH (20:40)
[2020-12-17 22:41] LABS: NUCLEATED RED BLOOD CELLS 1 /100 WBC; PLATELET ESTIMATE NORMAL
[2020-12-18] VITALS (7 sets, daily range): BP systolic 112–134; BP diastolic 50–96
[2020-12-18] MEDS: IPRATROPIUM/ALBUTEROL 0.5-3(2.5)MG/3ML NEB NEB SCH ×4 (01:36→20:22)
[2020-12-18] MEDS: MIDODRINE HCL 5MG TABLET PO SCH ×3 (06:00→21:33)
[2020-12-18 06:05] LABS: HEMATOCRIT. 33.2 % (36.0-48.0); HEMOGLOBIN. 10.4 g/dL (12.0-16.0); MEAN CORPUSCULAR HEMOGLOBIN 28.8 pg (28.0-32.0); MEAN CORPUSCULAR VOLUME 91.7 fL (81.0-99.0); MEAN PLATELET VOLUME 7.6 fl (7.4-10.4); PLATELET 251 x1000/uL (130-400); RED BLOOD CELL COUNT 3.62 mill/uL (4.2-5.4); RED CELL DISTRIBUTION WIDTH 20.2 % (11.6-14.6)
[2020-12-18] MEDS: METOCLOPRAMIDE HCL 5MG TABLET PO SCH ×4 (07:56→20:45)
[2020-12-18] MEDS: APIXABAN 2.5 MG TABLET PO SCH ×2 (08:31→16:47)
[2020-12-18] MEDS: DILTIAZEM HCL 120MG CAPSULE CD 24HR PO SCH (08:32)
[2020-12-18] MEDS: BUDESONIDE 0.5MG/2ML NEB HHN SCH (14:11)
[2020-12-18 14:34] LABS: PLATELET ESTIMATE NORMAL
[2020-12-18] MEDS: ONDANSETRON HCL 4MG/2ML INJ IV PRN (14:46)
[2020-12-18] MEDS: FAMOTIDINE 20MG TABLET PO SCH (21:32)
[2020-12-19] VITALS (7 sets, daily range): BP systolic 101–128; BP diastolic 47–74
[2020-12-19] MEDS: MIDODRINE HCL 5MG TABLET PO SCH ×4 (01:51→21:24)
[2020-12-19] MEDS: IPRATROPIUM/ALBUTEROL 0.5-3(2.5)MG/3ML NEB NEB SCH ×4 (02:42→20:50)
[2020-12-19] MEDS: BUDESONIDE 0.5MG/2ML NEB HHN SCH (02:46)
[2020-12-19] MEDS: TRAMADOL 50MG TABLET PO PRN (06:58)
[2020-12-19 07:04] LABS: HEMATOCRIT. 33.6 % (36.0-48.0); HEMOGLOBIN. 10.4 g/dL (12.0-16.0); MEAN CORPUSCULAR HEMOGLOBIN 28.4 pg (28.0-32.0); MEAN CORPUSCULAR VOLUME 91.7 fL (81.0-99.0); MEAN PLATELET VOLUME 7.5 fl (7.4-10.4); PLATELET 257 x1000/uL (130-400); RED BLOOD CELL COUNT 3.66 mill/uL (4.2-5.4); RED CELL DISTRIBUTION WIDTH 21.3 % (11.6-14.6)
[2020-12-19 07:22] LABS: PHOSPHORUS 4.6 mg/dL (2.5-4.9)
[2020-12-19] MEDS: DILTIAZEM HCL 120MG CAPSULE CD 24HR PO SCH (08:47)
[2020-12-19] MEDS: METOCLOPRAMIDE HCL 5MG TABLET PO SCH ×4 (08:47→21:24)
[2020-12-19] MEDS: APIXABAN 2.5 MG TABLET PO SCH ×2 (08:47→17:02)
[2020-12-19 13:38] LABS: PLATELET ESTIMATE NORMAL
[2020-12-19] MEDS: FAMOTIDINE 20MG TABLET PO SCH (21:24)
[2020-12-20] VITALS (9 sets, daily range): BP systolic 96–152; BP diastolic 57–84
[2020-12-20] MEDS: BUDESONIDE 0.5MG/2ML NEB HHN SCH ×3 (01:45→20:43)
[2020-12-20] MEDS: IPRATROPIUM/ALBUTEROL 0.5-3(2.5)MG/3ML NEB NEB SCH ×4 (02:17→19:45)
[2020-12-20] MEDS: MIDODRINE HCL 5MG TABLET PO SCH ×3 (05:17→21:30)
[2020-12-20] MEDS: METOCLOPRAMIDE HCL 5MG TABLET PO SCH ×4 (07:56→20:11)
[2020-12-20] MEDS: APIXABAN 2.5 MG TABLET PO SCH ×2 (08:26→17:17)
[2020-12-20] MEDS: DILTIAZEM HCL 120MG CAPSULE CD 24HR PO SCH (08:26)
[2020-12-20] MEDS: SORBITOL 70% SOLN 30ML PO PRN (12:56)
[2020-12-20] MEDS ORDERED: DOCU-138 PO (15:23)
[2020-12-20 15:47] LABS: HEMATOCRIT. 34.7 % (36.0-48.0); HEMOGLOBIN. 10.8 g/dL (12.0-16.0); MEAN CORPUSCULAR HEMOGLOBIN 28.4 pg (28.0-32.0); MEAN CORPUSCULAR VOLUME 90.8 fL (81.0-99.0); MEAN PLATELET VOLUME 7.5 fl (7.4-10.4); PLATELET 310 x1000/uL (130-400); RED BLOOD CELL COUNT 3.82 mill/uL (4.2-5.4); RED CELL DISTRIBUTION WIDTH 21.3 % (11.6-14.6)
[2020-12-20 15:57] LABS: CHLORIDE 103 mEq/L (98-107)
[2020-12-20] MEDS ORDERED: CHOL200059 PO (16:01)
[2020-12-20 16:13] LABS: PLATELET ESTIMATE NORMAL
[2020-12-20] MEDS ORDERED: FURO-152 MT (16:27)
[2020-12-20] MEDS ORDERED: LOSA50TA41 MT (16:27)
[2020-12-20] MEDS ORDERED: NIFE-32 MT (16:27)
[2020-12-20] MEDS ORDERED: METO-293 MT (16:27)
[2020-12-20] MEDS ORDERED: INSU100I28 SQ (16:27)
[2020-12-20] MEDS ORDERED: CLON0.2T PO (16:27)
[2020-12-20] MEDS ORDERED: HYDR-4135 PO (16:35)
[2020-12-20] MEDS ORDERED: NAP5EC MT (16:36)
[2020-12-20] MEDS ORDERED: METO-539 MT (16:39)
[2020-12-20] MEDS ORDERED: OMEP20CA14 MT (16:40)
[2020-12-20] MEDS ORDERED: TRAM50TA3 MT (16:43)
[2020-12-20] MEDS: FAMOTIDINE 20MG TABLET PO SCH (20:11)
[2020-12-21] VITALS: BP 103/37
[2020-12-21] MEDS: IPRATROPIUM/ALBUTEROL 0.5-3(2.5)MG/3ML NEB NEB SCH ×3 (01:45→13:45)
[2020-12-21 04:00] VITALS: BP 111/61
[2020-12-21] MEDS: MIDODRINE HCL 5MG TABLET PO SCH ×2 (05:16→14:00)
[2020-12-21 07:39] LABS: HEMATOCRIT. 33.1 % (36.0-48.0); HEMOGLOBIN. 10.5 g/dL (12.0-16.0); MEAN CORPUSCULAR HEMOGLOBIN 28.8 pg (28.0-32.0); MEAN PLATELET VOLUME 7.3 fl (7.4-10.4); PLATELET 302 x1000/uL (130-400); RED BLOOD CELL COUNT 3.63 mill/uL (4.2-5.4); RED CELL DISTRIBUTION WIDTH 21.2 % (11.6-14.6)
[2020-12-21 07:45] LABS: PHOSPHORUS 4.2 mg/dL (2.5-4.9)
[2020-12-21 08:00] VITALS: BP 91/58
[2020-12-21] MEDS: METOCLOPRAMIDE HCL 5MG TABLET PO SCH ×3 (08:43→16:51)
[2020-12-21] MEDS: APIXABAN 2.5 MG TABLET PO SCH ×2 (08:43→16:52)
[2020-12-21] MEDS: DILTIAZEM HCL 120MG CAPSULE CD 24HR PO SCH (09:00)
[2020-12-21] MEDS: BUDESONIDE 0.5MG/2ML NEB HHN SCH (09:50)
[2020-12-21 12:00] VITALS: BP 134/76
[2020-12-21] MEDS ORDERED: TRAMADOL 50MG TABLET PO PRN (12:00)
[2020-12-21 16:00] VITALS: BP 126/64
[2020-12-21 16:18] VITALS: BP 126/64
[2020-12-21 22:31] LABS: PLATELET ESTIMATE NORMAL
== END 2020-12-21 18:25 | DRG 291 ==
LOC: ER 10:48 → MICUSO 12:17 → EDBEDREQ 12:26 → EDBEDREQTM 12:27 → ENRESERV 13:39 → CANRESERV 13:39 → 5WST 12-06 08:37 → 5EST 12-06 14:47
PROVIDERS: ADMIT Internal Medicine; ATTEND Internal Medicine
PROC: 4B02XSZ Measurement of Cardiac Pacemaker, External Approach (ICD-10-PCS; 2020-12-05)
PROC: 02HV33Z Insertion of Infusion Device into Superior Vena Cava, Percutaneous Approach (ICD-10-PCS; 2020-12-06)
PROC: B548ZZA Ultrasonography of Superior Vena Cava, Guidance (ICD-10-PCS; 2020-12-06)
PROC: 5A09457 Assistance with Respiratory Ventilation, 24-96 Consecutive Hours, Continuous Positive Airway Pressure (ICD-10-PCS; 2020-12-06)
PROC: 5A1D70Z Performance of Urinary Filtration, Intermittent, Less than 6 Hours Per Day (ICD-10-PCS; 2020-12-06)
PROC: 0W9G30Z Drainage of Peritoneal Cavity with Drainage Device, Percutaneous Approach (ICD-10-PCS; principal; 2020-12-07)
PROC: 5A09357 Assistance with Respiratory Ventilation, Less than 24 Consecutive Hours, Continuous Positive Airway Pressure (ICD-10-PCS; 2020-12-08)
PROC: 5A1D70Z Performance of Urinary Filtration, Intermittent, Less than 6 Hours Per Day (ICD-10-PCS; 2020-12-08)
PROC: 5A09357 Assistance with Respiratory Ventilation, Less than 24 Consecutive Hours, Continuous Positive Airway Pressure (ICD-10-PCS; 2020-12-09)
PROC: 5A1D70Z Performance of Urinary Filtration, Intermittent, Less than 6 Hours Per Day (ICD-10-PCS; 2020-12-09)
PROC: 5A09357 Assistance with Respiratory Ventilation, Less than 24 Consecutive Hours, Continuous Positive Airway Pressure (ICD-10-PCS; 2020-12-10)
PROC: 5A09357 Assistance with Respiratory Ventilation, Less than 24 Consecutive Hours, Continuous Positive Airway Pressure (ICD-10-PCS; 2020-12-11)
PROC: 5A1D70Z Performance of Urinary Filtration, Intermittent, Less than 6 Hours Per Day (ICD-10-PCS; 2020-12-11)
PROC: 5A09357 Assistance with Respiratory Ventilation, Less than 24 Consecutive Hours, Continuous Positive Airway Pressure (ICD-10-PCS; 2020-12-12)
PROC: 5A1D70Z Performance of Urinary Filtration, Intermittent, Less than 6 Hours Per Day (ICD-10-PCS; 2020-12-12)
PROC: 5A09357 Assistance with Respiratory Ventilation, Less than 24 Consecutive Hours, Continuous Positive Airway Pressure (ICD-10-PCS; 2020-12-13)
PROC: 5A1D70Z Performance of Urinary Filtration, Intermittent, Less than 6 Hours Per Day (ICD-10-PCS; 2020-12-13)
PROC: 02PYX3Z Removal of Infusion Device from Great Vessel, External Approach (ICD-10-PCS; 2020-12-14)
PROC: 0JH63XZ Insertion of Tunneled Vascular Access Device into Chest Subcutaneous Tissue and Fascia, Percutaneous Approach (ICD-10-PCS; 2020-12-14)
PROC: 02HV33Z Insertion of Infusion Device into Superior Vena Cava, Percutaneous Approach (ICD-10-PCS; 2020-12-14)
PROC: B5181ZA Fluoroscopy of Superior Vena Cava using Low Osmolar Contrast, Guidance (ICD-10-PCS; 2020-12-14)
PROC: 5A09357 Assistance with Respiratory Ventilation, Less than 24 Consecutive Hours, Continuous Positive Airway Pressure (ICD-10-PCS; 2020-12-14)
PROC: 5A1D70Z Performance of Urinary Filtration, Intermittent, Less than 6 Hours Per Day (ICD-10-PCS; 2020-12-14)
PROC: 5A09357 Assistance with Respiratory Ventilation, Less than 24 Consecutive Hours, Continuous Positive Airway Pressure (ICD-10-PCS; 2020-12-15)
PROC: 5A09357 Assistance with Respiratory Ventilation, Less than 24 Consecutive Hours, Continuous Positive Airway Pressure (ICD-10-PCS; 2020-12-16)
PROC: 5A1D70Z Performance of Urinary Filtration, Intermittent, Less than 6 Hours Per Day (ICD-10-PCS; 2020-12-17)
PROC: 5A09357 Assistance with Respiratory Ventilation, Less than 24 Consecutive Hours, Continuous Positive Airway Pressure (ICD-10-PCS; 2020-12-18)
PROC: 5A09357 Assistance with Respiratory Ventilation, Less than 24 Consecutive Hours, Continuous Positive Airway Pressure (ICD-10-PCS; 2020-12-19)
PROC: 5A1D70Z Performance of Urinary Filtration, Intermittent, Less than 6 Hours Per Day (ICD-10-PCS; 2020-12-19)
PROC: 5A09357 Assistance with Respiratory Ventilation, Less than 24 Consecutive Hours, Continuous Positive Airway Pressure (ICD-10-PCS; 2020-12-20)
PROC: 5A1D70Z Performance of Urinary Filtration, Intermittent, Less than 6 Hours Per Day (ICD-10-PCS; 2020-12-20)
PROC: 5A09357 Assistance with Respiratory Ventilation, Less than 24 Consecutive Hours, Continuous Positive Airway Pressure (ICD-10-PCS; 2020-12-21)
DX: I13.2 Hypertensive heart and chronic kidney disease with heart failure and with stage 5 chronic kidney disease, or end stage renal disease (principal); I50.33 Acute on chronic diastolic (congestive) heart failure; J96.02 Acute respiratory failure with hypercapnia; G93.41 Metabolic encephalopathy; N18.6 End stage renal disease; J44.1 Chronic obstructive pulmonary disease with (acute) exacerbation; N17.9 Acute kidney failure, unspecified; E66.2 Morbid (severe) obesity with alveolar hypoventilation; E87.2 Acidosis; R18.8 Other ascites; E11.22 Type 2 diabetes mellitus with diabetic chronic kidney disease; D64.9 Anemia, unspecified; E11.43 Type 2 diabetes mellitus with diabetic autonomic (poly)neuropathy; E78.00 Pure hypercholesterolemia, unspecified; E78.5 Hyperlipidemia, unspecified; E87.5 Hyperkalemia; E87.6 Hypokalemia; F17.200 Nicotine dependence, unspecified, uncomplicated; I25.10 Atherosclerotic heart disease of native coronary artery without angina pectoris; I95.9 Hypotension, unspecified; I27.20 Pulmonary hypertension, unspecified; I48.0 Paroxysmal atrial fibrillation; I49.5 Sick sinus syndrome; K31.84 Gastroparesis; Z20.822 Contact with and (suspected) exposure to COVID-19; K74.60 Unspecified cirrhosis of liver; I43 Cardiomyopathy in diseases classified elsewhere; I35.0 Nonrheumatic aortic (valve) stenosis; K80.20 Calculus of gallbladder without cholecystitis without obstruction; Z79.51 Long term (current) use of inhaled steroids; Z79.84 Long term (current) use of oral hypoglycemic drugs; Z79.899 Other long term (current) drug therapy; Z95.810 Presence of automatic (implantable) cardiac defibrillator; Z99.2 Dependence on renal dialysis; Z88.2 Allergy status to sulfonamides; Z88.6 Allergy status to analgesic agent; Z88.8 Allergy status to other drugs, medicaments and biological substances; Z88.5 Allergy status to narcotic agent; Z79.01 Long term (current) use of anticoagulants
CPT/HCPCS: 36415; 36556; 36558; 36589; 36600; 49083; 71045; 74018; 74176; 76700; 76770; 76937; 77001; 80048; 80053; 80061; 80076; 81003; 82040; 82140; 82375; 82550; 82553; 82570; 82805; 82962; 83036; 83605; 83615; 83735; 83880; 83935; 84100; 84145; 84439; 84443; 84478; 84484; 85025; 85044; 86705; 86706; 86709; 86803; 86850; 86900; 87340; 87389; 87426; 88108; 88312; 90686; 93005; 93306; 93970; 94002; 94003; 94640; 94660; 96374; 97110; 97162; 97530; 99152; 99153; 99285; A6261; C1750; C1752; C1769; J0885; J1642; J1650; J1815; J1940; J1956; J2405; J3010; J3490; J7626; J8597; A4315; G0500